=== PATIENT | male | born 1945 | race American Indian/Alaskan Native ===

== ENCOUNTER 2020-01-02 21:05 | Emergency (ER) | payer MEDICARE ==
[2020-01-02] MEDS ORDERED: ASPIRIN 325 MG TAB PO ONE (21:22)
[2020-01-02 22:33] LABS: Basophils # (Auto) 0.1 K/mm3 (0.0-0.1); Basophils % (Auto) 0.7 % (0.0-1.8); Eosinophils # (Auto) 0.2 K/mm3 (0.0-0.4); Eosinophils % (Auto) 2.1 % (0.0-4.3); Hematocrit 44.2 % (35.5-45.6); Hemoglobin 14.9 gm/dl (11.8-15.2); Lymphocytes # (Auto) 1.7 K/mm3 (1.2-5.4); Lymphocytes % (Auto) 20.3 % (13.4-35.0); Mean Corpuscular HGB Conc 34 % (32-34); Mean Corpuscular Volume 82 fl (84-94); Monocytes % (Auto) 11.3 % (0.0-7.3); Platelet Count 319 K/mm3 (140-440); Red Blood Count 5.42 M/mm3 (3.65-5.03)
[2020-01-02 22:53] LABS: Blood Urea Nitrogen 18 mg/dL (9-20); Calcium 9.4 mg/dL (8.4-10.2); Hemolysis Index 8
--- NOTE | 2020-01-02 22:54 | XRay Report ---
CHEST 2 VIEWS INDICATION / CLINICAL INFORMATION: Chest pain COMPARISON: None available. FINDINGS: SUPPORT DEVICES: None. HEART / MEDIASTINUM: No significant abnormality. LUNGS / PLEURA: No significant pulmonary or pleural abnormality. No pneumothorax. ADDITIONAL FINDINGS: No significant additional findings. IMPRESSION: No acute cardiopulmonary abnormality. Signer Name: Klaus Garcia MD Signed: 01/02/2020 10:49 PM Workstation Name: [id number]
[2020-01-02 22:59] LABS: BUN/Creatinine Ratio 26
[2020-01-03] MEDS ORDERED: amLODIPine 5 MG TAB PO ONE (02:23)
--- NOTE | 2020-01-03 02:23 | Emergency Department Report ---
ED Extremity Problem HPI - General Chief complaint: Chest Pain Stated complaint: LT SHOULDER PAIN Time Seen by Provider: 01/03/20 01:56 Source: patient Mode of arrival: Ambulatory Limitations: No Limitations - History of Present Illness Initial comments: 74-year-old male with a past medical history of hypertension noncompliant with meds for over 1 year presents to the hospital complaining of left-sided neck pain going to the shoulder x3 days. Patient woke up with left sided neck muscle stiffness that is worse with movement and palpation. PD radiated from neck lateral left neck down to the shoulder. Patient took ibuprofen 200 mg with resolution in pain. He denies nausea, vomiting, chest pain, shortness of breath, paresthesias, or headache. Patient states he would intimately feel the left side of his neck tightening up and releasing. He is right-hand dominant. Denies any recent injury - Related Data Home Medications Medication Instructions Recorded Confirmed Last Taken cloNIDine [Catapres] 0.1 mg PO DAILY 03/28/15 03/28/15 Unknown Previous Rx's Medication Instructions Recorded Last Taken Type Ketorolac [Toradol] 10 mg PO Q6H PRN #30 tablet 03/28/15 Unknown Rx Valacyclovir HCl [Valtrex] 1,000 mg PO TID #21 tablet 03/28/15 Unknown Rx oxyCODONE [roxiCODONE] 5 mg PO Q6HR PRN #12 tablet 03/28/15 Unknown Rx Amlodipine Besylate [Norvasc] 5 mg PO DAILY #30 tablet 01/03/20 Unknown Rx Ibuprofen [Motrin] 400 mg PO Q8H PRN #20 tablet 01/03/20 Unknown Rx Allergies Allergy/AdvReac Type Severity Reaction Status Date / Time No Known Allergies Allergy Unverified 03/28/15 15:57 ED Review of Systems ROS: Stated complaint: LT SHOULDER PAIN Other details as noted in HPI Comment: All other systems reviewed and negative ED Past Medical Hx - Past Medical History Hx Hypertension: Yes (taking meds intermittantly) - Social History Smoking Status: Never Smoker Substance Use Type: Alcohol - Medications Home Medications: Home Medications Medication Instructions Recorded Confirmed Last Taken Type Ketorolac [Toradol] 10 mg PO Q6H PRN #30 tablet 03/28/15 Unknown Rx Valacyclovir HCl [Valtrex] 1,000 mg PO TID #21 tablet 03/28/15 Unknown Rx cloNIDine [Catapres] 0.1 mg PO DAILY 03/28/15 03/28/15 Unknown History oxyCODONE [roxiCODONE] 5 mg PO Q6HR PRN #12 tablet 03/28/15 Unknown Rx Amlodipine Besylate [Norvasc] 5 mg PO DAILY #30 tablet 01/03/20 Unknown Rx Ibuprofen [Motrin] 400 mg PO Q8H PRN #20 tablet 01/03/20 Unknown Rx ED Physical Exam - General Limitations: No Limitations - Other Other exam information: General: No acute distress Head: Atraumatic Eyes: normal appearance ENT: Moist mucous membranes Neck: Normal appearance, no midline tenderness, left-sided trapezius muscle tenderness to palpate Chest: Clear to auscultation bilaterally CV: Regular rate and rhythm Abdomen: Soft, normal bowel sounds, nontender, nondistended, no rebound or gua rding Back: Normal inspection Extremity: Normal inspection, full range of motion, full range of motion of left shoulder without difficulty. Pain is mild since taking Motrin. Tenderness of left trapezius of the neck down to the shoulder. No shoulder joint tenderness or warmth Neuro: Alert O x 3, no facial asymmetry, speech clear, no gross motor sensory deficit Psych: Appropriate behavior Skin: No rash ED Course Vital Signs 01/02/20 21:19 Temperature 98.2 F Pulse Rate 78 Respiratory 17 Rate Blood Pressure 220/92 O2 Sat by Pulse 98 Oximetry ED Medical Decision Making - Lab Data Result diagrams: 01/02/20 22:13 01/02/20 22:13 Lab Results 01/02/20 01/02/20 01/03/20 Range/Units 22:13 22:13 00:41 WBC 8.4 (4.5-11.0) K/mm3 RBC 5.42 H (3.65-5.03) M/mm3 Hgb 14.9 (11.8-15.2) gm/dl Hct 44.2 (35.5-45.6) % MCV 82 L (84-94) fl MCH 28 (28-32) pg MCHC 34 (32-34) % RDW 15.0 (13.2-15.2) % Plt Count 319 (140-440) K/mm3 Lymph % (Auto) 20.3 (13.4-35.0) % [place] % (Auto) 11.3 H (0.0-7.3) % Eos % (Auto) 2.1 (0.0-4.3) % Baso % (Auto) 0.7 (0.0-1.8) % Lymph # (Auto) 1.7 (1.2-5.4) K/mm3 [place] # (Auto) 1.0 H (0.0-0.8) K/mm3 Eos # (Auto) 0.2 (0.0-0.4) K/mm3 Baso # (Auto) 0.1 (0.0-0.1) K/mm3 Seg Neutrophils % 65.6 (40.0-70.0) % Seg Neutrophils # 5.5 (1.8-7.7) K/mm3 Sodium 139 (137-145) mmol/L Potassium 3.8 (3.6-5.0) mmol/L Chloride 102.4 (98-107) mmol/L Carbon Dioxide 23 (22-30) mmol/L Anion Gap 17 mmol/L BUN 18 (9-20) mg/dL Creatinine 0.7 L (0.8-1.3) mg/dL Estimated GFR > 60 ml/min BUN/Creatinine Ratio 26 % Glucose 150 H (75-100) mg/dL Calcium 9.4 (8.4-10.2) mg/dL Troponin T < 0.010 < 0.010 (0.00-0.029) ng/mL - EKG Data -: EKG Interpreted by Me (lvh) EKG shows normal: sinus rhythm, QRS complexes (pvc) Rate: normal (75) - EKG Data When compared to previous EKG there are: previous EKG unavailable - Radiology Data Radiology results: report reviewed CHEST 2 VIEWS INDICATION / CLINICAL INFORMATION: Chest pain COMPARISON: None available. FINDINGS: SUPPORT DEVICES: None. HEART / MEDIASTINUM: No significant abnormality. LUNGS / PLEURA: No significant pulmonary or pleural abnormality. No pneumothorax. ADDITIONAL FINDINGS: No significant additional findings. IMPRESSION: No acute cardiopulmonary abnormality. - Medical Decision Making Patient did receive a chest pain work-up in the ED due to cardiac risk factors although pain appears to be more musculoskeletal in origin. Patient woke up with the pain suggesting he might of slept in awkward position and describes the pain is intermittent tightness alleviated by ibuprofen without associated cardiac symptoms. Patient presents with hypertension likely chronic since he is asymptomatic and has been not taking his BP meds x1 year because he "feels fine". Patient was educated on the importance of taking blood pressure medication and seems to be agreeable to restarting meds. Norvasc 5 mg provided in the ED. Patient be discharged on Norvasc, instructed to monitor his blood pressure at home and follow-up with his doctor. Patient's pain improved prior to arrival with Motrin 200 mg. Patient is afraid to take a higher dose of Motrin due to risk of drowsiness. I informed that motion does not typically make you drowsy and will increase dose to 400 mg as needed. Muscle relaxant would not be provided since patient symptoms are improved with NSAIDs alone and muscle relaxants can cause drowsiness Critical Care Time: No Critical care attestation.: If time is entered above; I have spent that time in minutes in the direct care of this critically ill patient, excluding procedure time. ED Disposition Clinical Impression: Strain of left trapezius muscle, Asymptomatic hypertension, Noncompliance with medication regimen, Muscle spasm Disposition: - TO HOME OR SELFCARE Is pt being admited?: No Does the pt Need Aspirin: No Condition: Stable Instructions: Hypertension (ED), Muscle Spasm (ED) Additional Instructions: Take the medication as prescribed. Follow-up with your doctor or doctor/clinic provided. Return if symptoms worsen as indicated by your discharge instructions. Prescriptions: Ibuprofen [Motrin] 400 mg PO Q8H PRN #20 tablet PRN Reason: Pain , Severe (7-10) Amlodipine Besylate [Norvasc] 5 mg PO DAILY #30 tablet Referrals: PRIMARY CARE, [Primary Care Provider] - 3-5 Days Time of Disposition: 02:39
[2020-01-03 03:05] VITALS: BP 190/97
== END 2020-01-03 03:10 | disposition home or self-care (01) ==
LOC: ED 21:05
DX: S46.912A Strain of unspecified muscle, fascia and tendon at shoulder and upper arm level, left arm, initial encounter (principal); I10 Essential (primary) hypertension; M62.838 Other muscle spasm; Z91.14 Patient's other noncompliance with medication regimen; Z79.1 Long term (current) use of non-steroidal anti-inflammatories (NSAID); Z79.899 Other long term (current) drug therapy; X58.XXXA Exposure to other specified factors, initial encounter; Y93.89 Activity, other specified; Y92.89 Other specified places as the place of occurrence of the external cause; Y99.8 Other external cause status
CPT/HCPCS: 36415; 71046; 80048; 84484; 85025; 93005

== ENCOUNTER 2020-03-27 09:54 | Emergency (ER) | payer MEDICARE ==
--- NOTE | 2020-03-27 10:43 | XRay Report ---
CHEST 2 VIEWS INDICATION / CLINICAL INFORMATION: SOB. COMPARISON: 01/02/20. FINDINGS: SUPPORT DEVICES: None. HEART / MEDIASTINUM: There is mild cardiomegaly with a left ventricular configuration. Pulmonary vasc ulature is normal. There is mild aortic tortuosity without aneurysm. LUNGS / PLEURA: No significant pulmonary or pleural abnormality. No pneumothorax. ADDITIONAL FINDINGS: No significant additional findings. IMPRESSION: No acute abnormality or significant change. Signer Name: Bang Steinberg MD Signed: 03/27/2020 10:39 AM Workstation Name: [id number]
[2020-03-27 14:26] LABS: Basophils # (Auto) 0.1 K/mm3 (0.0-0.1); Basophils % (Auto) 0.5 % (0.0-1.8); Eosinophils # (Auto) 0.3 K/mm3 (0.0-0.4); Eosinophils % (Auto) 2.9 % (0.0-4.3); Hematocrit 40.5 % (35.5-45.6); Hemoglobin 13.6 gm/dl (11.8-15.2); Lymphocytes # (Auto) 2.4 K/mm3 (1.2-5.4); Lymphocytes % (Auto) 22.5 % (13.4-35.0); Mean Corpuscular HGB Conc 34 % (32-34); Mean Corpuscular Volume 81 fl (84-94); Monocytes # (Auto) 1.6 K/mm3 (0.0-0.8); Monocytes % (Auto) 15.1 % (0.0-7.3); Platelet Count 325 K/mm3 (140-440); Red Blood Count 4.98 M/mm3 (3.65-5.03); Red Cell Distribution Width 14.5 % (13.2-15.2)
[2020-03-27 14:57] LABS: Alanine Aminotransferase 21 units/L (7-56); Albumin 3.5 g/dL (3.9-5); BUN/Creatinine Ratio 26; Blood Urea Nitrogen 21 mg/dL (9-20); Calcium 8.9 mg/dL (8.4-10.2); Hemolysis Index 161
--- NOTE | 2020-03-27 23:35 | Emergency Department Report ---
ED General Adult HPI - General Chief complaint: Upper Respiratory Infection Stated complaint: COUGH PUI?: Yes Time Seen by Provider: 03/27/20 23:33 Source: patient, RN notes reviewed, old records reviewed Mode of arrival: Ambulatory Limitations: No Limitations - History of Present Illness Initial comments: The patient was evaluated in the emergency department for symptoms described in the history of present illness. He/she was evaluated in the context of the global COVID-19 pandemic, which necessitated consideration that the patient might be at risk for infection with the virus that causes COVID-19. Institutional protocols and algorithms that pertain to the evaluation of patients at risk for COVID-19 are in a state of rapid change based on information released by regulatory bodies including the CDC and federal and [facility] organizations. These policies and algorithms were followed during the patient's care in the emergency department. Please note that these policies, procedures and recommendations changed on a rapid basis. During the entire history and physical examination, I had on complete personal protective equipment. This patient is a 74-year-old pleasant gentleman with a history of hypertension, who presents to the ER today with a complaint of nonproductive cough for 1 week. He denies fever, significant shortness of breath, new or different loss of taste/loss of smell, chest pain, abdominal pain, leg pain and leg swelling, muscle aches, hematemesis and bright red blood per rectum. He does not c urrently smoke cigarettes. Symptoms intermittent for the past week, painless, and do not have exacerbating factors or relieving factors. No exposure to Covid positive individuals that he is aware of. -: Gradual, days(s) Consistency: intermittent Improves with: none Worsens with: none Associated Symptoms: denies other symptoms, cough - Related Data Home Medications Medication Instructions Recorded Confirmed Last Taken cloNIDine [Catapres] 0.1 mg PO DAILY 03/28/15 03/28/15 Unknown Previous Rx's Medication Instructions Recorded Last Taken Type Ketorolac [Toradol] 10 mg PO Q6H PRN #30 tablet 03/28/15 Unknown Rx Valacyclovir HCl [Valtrex] 1,000 mg PO TID #21 tablet 03/28/15 Unknown Rx oxyCODONE [roxiCODONE] 5 mg PO Q6HR PRN #12 tablet 03/28/15 Unknown Rx Amlodipine Besylate [Norvasc] 5 mg PO DAILY #30 tablet 01/03/20 Unknown Rx Ibuprofen [Motrin] 400 mg PO Q8H PRN #20 tablet 01/03/20 Unknown Rx Albuterol Sulfate [Proair 90 mcg IH Q4HR PRN #2 aer.pow.ba 03/28/20 Unknown Rx Respiclick] Amlodipine Besylate [Norvasc] 5 mg PO QDAY #30 tablet 03/28/20 Unknown Rx Benzonatate [Tessalon Perles] 100 mg PO Q8HR PRN #30 capsule 03/28/20 Unknown Rx Allergies Allergy/AdvReac Type Severity Reaction Status Date / Time No Known Allergies Allergy Unverified 03/28/15 15:57 ED Review of Systems ROS: Stated complaint: COUGH Other details as noted in HPI Comment: All other systems reviewed and negative ENT: congestion Respiratory: cough ED Past Medical Hx - Past Medical History Hx Hypertension: Yes (taking meds intermittantly) - Surgical History Past Surgical History?: No - Social History Smoking Status: Never Smoker - Medications Home Medications: Home Medications Medication Instructions Recorded Confirmed Last Taken Type Ketorolac [Toradol] 10 mg PO Q6H PRN #30 tablet 03/28/15 Unknown Rx Valacyclovir HCl [Valtrex] 1,000 mg PO TID #21 tablet 03/28/15 Unknown Rx cloNIDine [Catapres] 0.1 mg PO DAILY 03/28/15 03/28/15 Unknown History oxyCODONE [roxiCODONE] 5 mg PO Q6HR PRN #12 tablet 03/28/15 Unknown Rx Amlodipine Besylate [Norvasc] 5 mg PO DAILY #30 tablet 01/03/20 Unknown Rx Ibuprofen [Motrin] 400 mg PO Q8H PRN #20 tablet 01/03/20 Unknown Rx Albuterol Sulfate [Proair 90 mcg IH Q4HR PRN #2 aer.pow.ba 03/28/20 Unknown Rx Respiclick] Amlodipine Besylate [Norvasc] 5 mg PO QDAY #30 tablet 03/28/20 Unknown Rx Benzonatate [Tessalon Perles] 100 mg PO Q8HR PRN #30 capsule 03/28/20 Unknown Rx ED Physical Exam - General Limitations: No Limitations General appearance: alert, in no apparent distress - Head Head exam: Present: atraumatic, normocephalic - Eye Eye exam: Present: normal appearance, EOMI. Absent: nystagmus - ENT ENT exam: Present: normal exam, normal orophraynx, mucous membranes moist, normal external ear exam - Neck Neck exam: Present: normal inspection, full ROM. Absent: tenderness, meningismus - Respiratory Respiratory exam: Present: normal lung sounds bilaterally. Absent: respiratory distress, wheezes, rales, rhonchi, stridor, decreased breath sounds - Cardiovascular Cardiovascular Exam: Present: regular rate, normal rhythm, normal heart sounds. Absent: bradycardia, tachycardia, irregular rhythm, systolic murmur, diastolic murmur, rubs, gallop - GI/Abdominal GI/Abdominal exam: Present: soft, normal bowel sounds. Absent: distended, tenderness, guarding, rebound, rigid, pulsatile mass - Rectal Rectal exam: Present: deferred - Extremities Exam Extremities exam: Present: normal inspection, full ROM, pedal edema (1+ edema in the bilateral lower extremities. The patient reports that this is chronic.), other (2+ pulses noted in the bilateral upper and lower extremities. There is no palpable cord. negative Homans sign. Muscular compartments are soft. The pelvis is stable.). Absent: calf tenderness - Back Exam Back exam: Present: normal inspection, full ROM. Absent: tenderness, CVA tenderness (R), CVA tenderness (L), paraspinal tenderness, vertebral tenderness - Neurological Exam Neurological exam: Present: alert, normal gait, other (No facial droop. Tongue midline. Extraocular movements intact bilaterally. Facial sensation intact to light touch in V1, V2, V3 distribution bilaterally. 5 and a 5 strength in 4 extremities. Sensation intact to light touch in 4 extremities.) - Psychiatric Psychiatric exam: Present: normal affect, normal mood - Skin Skin exam: Present: warm, dry, intact, normal color. Absent: rash ED Course Vital Signs 03/27/20 10:04 Temperature 98.2 F Pulse Rate 77 Respiratory 18 Rate Blood Pressure 195/90 O2 Sat by Pulse 97 Oximetry ED Medical Decision Making - Lab Data Result diagrams: 03/27/20 13:10 03/27/20 13:10 Vital Signs 03/27/20 10:04 Temperature 98.2 F Pulse Rate 77 Respiratory 18 Rate Blood Pressure 195/90 O2 Sat by Pulse 97 Oximetry Lab Results 03/27/20 03/27/20 03/27/20 Range/Units 13:10 13:10 Unknown WBC 10.5 (4.5-11.0) K/mm3 RBC 4.98 (3.65-5.03) M/mm3 Hgb 13.6 (11.8-15.2) gm/dl Hct 40.5 (35.5-45.6) % MCV 81 L (84-94) fl MCH 27 L (28-32) pg MCHC 34 (32-34) % RDW 14.5 (13.2-15.2) % Plt Count 325 (140-440) K/mm3 Lymph % (Auto) 22.5 (13.4-35.0) % [place] % (Auto) 15.1 H (0.0-7.3) % Eos % (Auto) 2.9 (0.0-4.3) % Baso % (Auto) 0.5 (0.0-1.8) % Lymph # (Auto) 2.4 (1.2-5.4) K/mm3 [place] # (Auto) 1.6 H (0.0-0.8) K/mm3 Eos # (Auto) 0.3 (0.0-0.4) K/mm3 Baso # (Auto) 0.1 (0.0-0.1) K/mm3 Seg Neutrophils % 59.0 (40.0-70.0) % Seg Neutrophils # 6.2 (1.8-7.7) K/mm3 Sodium 138 (137-145) mmol/L Potassium 4.4 (3.6-5.0) mmol/L Chloride 102.5 (98-107) mmol/L Carbon Dioxide 26 (22-30) mmol/L Anion Gap 14 mmol/L BUN 21 H (9-20) mg/dL Creatinine 0.8 (0.8-1.3) mg/dL Estimated GFR > 60 ml/min BUN/Creatinine Ratio 26 % Glucose 86 (75-100) mg/dL Calcium 8.9 (8.4-10.2) mg/dL Total Bilirubin 0.40 (0.1-1.2) mg/dL AST 29 (5-40) units/L ALT 21 (7-56) units/L Alkaline Phosphatase 140 H (35-129) units/L NT-Pro-B Natriuret Pep 262.7 (0-900) pg/mL Total Protein 7.0 (6.3-8.2) g/dL Albumin 3.5 L (3.9-5) g/dL Albumin/Globulin Ratio 1.0 % - Radiology Data Radiology results: report reviewed, image reviewed Print Report Referring Physician: RAYMON VENTURA Patient Name: VICTORIA RODRIGUEZ Date of : 1945 Sex: Male Report Date: 2020-03-27 Report Status: Finalized Findings [facility], [place] [address] [place] [address] XRay Report Signed Patient: VICTORIA RODRIGUEZ MR#: [id number] : 1945 Acct:[id number] Age/Sex: 74 / M ADM Date: 03/27/20 Loc: ED Attending Dr: Ordering Physician: RAYMON VENTURA MD Date of Service: 03/27/20 Procedure(s): XR chest routine 2V Accession Number(s): [id number] cc: RAYMON VENTURA MD Fluoro Time In Minutes: CHEST 2 VIEWS INDICATION / CLINICAL INFORMATION: SOB. COMPARISON: 01/02/20. FINDINGS: SUPPORT DEVICES: None. HEART / MEDIASTINUM: There is mild cardiomegaly with a left ventricular configuration. Pulmonary vasculature is normal. There is mild aortic tortuosity without aneurysm. LUNGS / PLEURA: No significant pulmonary or pleural abnormality. No pneumothorax. ADDITIONAL FINDINGS: No significant additional findings. IMPRESSION: No acute abnormality or significant change. Signer Name: Bang Steinberg MD Signed: 03/27/2020 10:39 AM Workstation Name: [id number] Transcribed By: RT Dictated By: Bang Steinberg MD Electronically Authenticated By: Bang Steinberg MD Signed Date/Time: 03/27/20 1039 DD/ 1037 TD/TT: - Medical Decision Making Differential diagnosis, including but not limited to: Bronchitis, viral syndr ome, asymptomatic hypertension, COVID-19 Assessment and plan: 74-year-old gentleman with complaint of cough, x1 week, without fever, loss of taste or loss of smell. He has chronic hypertension. He was recently prescribed Norvasc a few months ago. He thinks he might take clonidine, but he is not certain. From a hypertension standpoint, he does not appear to be acutely decompensated, please reference the [employer] clinical policy on asymptomatic hypertension. Patient able to ambulate for 5 minutes on a portable pulse ox and did not desaturate, O2 sat 97 to 99%. Patient observed in this ER for hours without clinical decompensation. This is most likely bronchitis. However, COVID-19 also a possibility. Patient reports 1 week of symptoms, therefore, he is suitable for trial of outpatient management. We will discharge with [employer], albuterol, Covid isolation instructions, refill Norvasc, and instruct patient to follow-up with outpatient primary care doctor. Laboratory studies and x-ray of the chest were obtained prior to my personal evaluation of this patient. Critical care attestation.: If time is entered above; I have spent that time in minutes in the direct care of this critically ill patient, excluding procedure time. ED Disposition Clinical Impression: Cough, Elevated blood pressure reading, Medication refill Disposition: DC-01 TO HOME OR SELFCARE Is pt being admited?: No Does the pt Need Aspirin: No Condition: Good Instructions: Cough, Adult, [id number], COVID-19, Managing Your Hypertension Additional Instructions: As we discussed, the patient most likely has novel coronavirus/COVID. the symptoms of COVID will typically persist 10 to 14 days. There is no cure at this time for COVID. Please make certain to self isolate and self quarantine, follow-up with an outpatient primary care doctor within the next 3 to 5 days, wash hands with soap and water frequently, thoroughly and often, patient may take the prescribed medications as needed and directed. Advance diet and drink plenty of fluids as tolerated. Avoid interactions with the very elderly, very young, and those with chronic medical conditions. Return to the emergency room right away with new pain, worsening pain, migration of pain, projectile vomiting, change in mental status, confusion, inability to tolerate liquid feeds, new, worsened or different symptoms not present on the initial emergency room evaluation. Patient was found to have elevated blood pressure while in the emergency room today. Blood pressure medication will be refilled today for 1 month. It is very important to take blood pressure medication, and to follow-up with an outpatient primary care doctor for hypertension. Long-term complications of blood pressure and hypertension include stroke, heart attack, disability, paralysis, permanent loss of quality of life. Prescriptions: Amlodipine Besylate [Norvasc] 5 mg PO QDAY #30 tablet Albuterol Sulfate [Proair Respiclick] 90 mcg IH Q4HR PRN #2 aer.pow.ba PRN Reason: Wheezing Benzonatate [Tessalon Perles] 100 mg PO Q8HR PRN #30 capsule PRN Reason: Cough Referrals: ALLYSON AYALA MD [Staff Physician] - 3-5 Days [facility] [Provider Group] - 3-5 Days
[2020-03-28 02:50] VITALS: BP 178/91
== END 2020-03-28 01:30 | disposition home or self-care (01) ==
LOC: ED 09:54
DX: R05 Cough (principal); I10 Essential (primary) hypertension; Z76.0 Encounter for issue of repeat prescription; Z79.1 Long term (current) use of non-steroidal anti-inflammatories (NSAID); Z79.899 Other long term (current) drug therapy
CPT/HCPCS: 36415; 71046; 80053; 83880; 85025